=== PATIENT | male | born 1980 | race Two or more races ===

== ENCOUNTER 2024-09-10 09:39 | Emergency (ER) | payer OTHER ==
[~2024-09-10] VITALS: Ht 167.6 cm; Wt 118.4 kg
[2024-09-10 09:57] VITALS: BP 112/77; O2SAT 97
[2024-09-10] MEDS ORDERED: METFORMIN HCL1000 M2 (10:01)
[2024-09-10] MEDS ORDERED: LEVO-T100 MCG PO (10:01)
[2024-09-10] MEDS ORDERED: ZESTRIL5 MG (10:01)
[2024-09-10] MEDS ORDERED: GLIPIZIDE XL10 MG PO (10:01)
[2024-09-10 11:31] LABS: BASO % 0.4 % (0.1-1.2); HEMATOCRIT 45.5 % (40.1-51.0); HEMOGLOBIN 15.4 g/dL (13.7-17.5); LYMPH # 0.63 (1.18-3.74); LYMPH % 3.3 % (19.3-53.1); MEAN CORPUSCULAR HEMOGLOBIN 27.4 pg (25.6-32.2); MONO # 0.99 (0.24-0.82); MONO % 5.2 % (4.7-12.5); NEUT # 17.31 (1.56-6.13); NEUT % 90.4 % (34.0-71.1); PLATELET COUNT 284 K/uL (163-369); RED BLOOD COUNT 5.62 M/uL (4.63-6.08); RED CELL DISTRIBUTION WIDTH 12.7 % (11.6-14.4)
[2024-09-10 11:35] LABS: PH,URINE 5.5 (5.0-8.0); URINE APPEARANCE Clear; URINE BILIRRUBIN Negative (NEGATIVE); URINE BLOOD NHT; URINE COLOR Yellow; URINE KETONE 15 (NEGATIVE); URINE LEUKOCYTE Small; URINE NITRATE Negative; URINE PROTEIN 30 (NEGATIVE); URINE UROBILINOGEN 0.2 E.U./dl
[2024-09-10 11:37] LABS: URINE BACTERIA 59.9 uL (0.0-1933); URINE CAST 0.29 uL (0.0-1.40); URINE EPITHELIAL CELLS 1.5 uL (0.0-38.8); URINE GLUCOSE >=1000 MG/DL (NEGATIVE); URINE RBC 10.4 uL (0.0-20.8); URINE WBC 633.8 uL (0.0-23.2)
[2024-09-10 11:49] LABS: ALBUMIN 3.6 gm/dL (3.4-5.0); BILIRUBIN TOTAL 0.75 mg/dL (0.3-1.2); CALCIUM 9.8 mg/dL (8.5-10.1); CREATININE SERUM 0.89 mg/dL (0.70-1.30); GFR 92.86; GLOBULINA 4.4 G/DL (2.4-3.5); POTASSIUM 3.79 mEq/L (3.5-5.1)
[2024-09-10] MEDS ORDERED: KETOROLAC TROMETHAMINE 15 MG VIAL IV STA (12:17)
[2024-09-10] MEDS ORDERED: CEFTRIAXONE SODIUM 1,000 MG VIAL IV STA (12:18)
[2024-09-10] MEDS ORDERED: KETOROLAC TROMETHAMINE 30 MG VIAL ONE (12:19)
[2024-09-10] MEDS ORDERED: CEFTRIAXONE SODIUM 1,000 MG VIAL ONE (12:19)
[2024-09-10] MEDS ORDERED: DUI500 PO (12:22)
== END 2024-09-10 12:28 | disposition home or self-care (01) ==
LOC: ER 09:53
PROVIDERS: Emergency Medicine
DX: N39.0 Urinary tract infection, site not specified (principal); B96.20 Unspecified Escherichia coli [E. coli] as the cause of diseases classified elsewhere; E11.9 Type 2 diabetes mellitus without complications; Z79.84 Long term (current) use of oral hypoglycemic drugs